=== PATIENT | male | born 1990 | race Caucasian/White ===

== ENCOUNTER 2022-04-26 23:31 | Emergency (ER) | payer BC ==
[~2022-04-26] VITALS: Ht 188 cm; Wt 140.6 kg
[2022-04-27 00:28] VITALS: BP 135/99
[2022-04-27 01:12] LABS: BASOPHILS # (AUTO) 0.1 K/uL (0.00-0.22); BASOPHILS % (AUTO) 0.6 % (0.0-2.0); EOSINOPHILS % (AUTO) 0.1 % (0.0-4.0); HEMATOCRIT 48.7 % (36-52); HEMOGLOBIN 16.4 g/dL (12.0-18.0); LYMPHOCYTES # (AUTO) 1.1 K/uL (2.0-11.5); LYMPHOCYTES % (AUTO) 9.9 % (20.5-51.1); MEAN CORPUSCULAR HEMOGLOBIN 31 pg (27-31); MEAN CORPUSCULAR HGB CONC 34 g/dL (33-37); MEAN CORPUSCULAR VOLUME 93.3 fL (80-94); MONOCYTES # (AUTO) 1.4 K/uL (0.8-1.0); MONOCYTES % (AUTO) 12.6 % (1.7-9.3); NEUTROPHILS # (AUTO) 8.5 K/uL (1.8-7.7); NEUTROPHILS % (AUTO) 76.8 % (42.2-75.2); PLATELET COUNT (AUTO) 280 K/uL (140-450); RED BLOOD CELL COUNT(AUTO) 5.22 MIL/uL (4.20-6.10)
[2022-04-27 01:29] LABS: ALBUMIN 4.1 g/dL (3.4-5.0); CARBON DIOXIDE 27.5 mmol/L (21-32); CREATININE 1.1 mg/dL (0.6-1.3); POTASSIUM 4.5 mmol/L (3.5-5.1); TOTAL BILIRUBIN 0.5 mg/dL (0.0-1.0)
[2022-04-27 01:46] LABS: APPEARANCE,URINE CLEAR (CLEAR); BILIRUBIN,URINE 1+ (NEGATIVE); BLOOD, URINE NEGATIVE (NEGATIVE); COLOR,URINE DARK YELLOW (YELLOW); LEUKOCYTE ESTERASE ,URINE NEGATIVE (NEGATIVE); NITRITE, URINE NEGATIVE (NEGATIVE); UGLUCOSE NEGATIVE (NEGATIVE)
[2022-04-27] MEDS ORDERED: MORPHINE SULFATE 4 MG/ML SYR IVP ONE ×2 (02:10→06:10)
[2022-04-27] MEDS ORDERED: LACTATED RINGERS 1,000 ML IV ONE ×2 (02:10→06:10)
--- NOTE | 2022-04-27 02:19 | NUR ---
pt taken to bed 9 with steady gait.
--- NOTE | 2022-04-27 03:25 | NUR ---
31 yo/m presents to ED w c/o mid-epigastric pain 8/10 sharp constant non-rad xapprox 13 hours, + nausea. Pt denies any fevers, chills, v/d, chest pain or sob. pt laying in bed locked in lowest position, breathing even an dunlabored, will continue to monitor. pmh: denies allergies: denies
--- NOTE | 2022-04-27 04:02 | NUR ---
COVID SWAB SENT TO LAB
--- NOTE | 2022-04-27 04:05 | NUR ---
pt reports abdominal pain improvement.
--- NOTE | 2022-04-27 04:50 | NUR ---
spoke olga lidia gonzales from [facility] to provide clinicals.
--- NOTE | 2022-04-27 06:08 | NUR ---
PT REPORTS PAIN HAS RETURNED 4-5/, PT TACHY 115 ERMD AWARE OF PT STATUS.
--- NOTE | 2022-04-27 06:41 | NUR ---
Patient to be transferred to [facility]. Is being transferred due to insurance request. Receiving facility has accepting physician and available space. ER physician has signed transfer form. Patient or responsible constitution party has agreed to transfer and signed form. Patient belongings inventoried and will be sent with patient. Copy of nursing notes, lab reports, EKG, Physicians Orders and X-rays to be sent with patient. Report called to margarito GREENE at receiving facility. [facility] ambulance service has been called for transfer. ETA is [id number].
--- NOTE | 2022-04-27 07:14 | NUR ---
Pt report given to JC Souza. Transfer of care at this time.
--- NOTE | 2022-04-27 07:26 | NUR ---
Patient appears to be resting comfortably in bed. Vital Signs within normal limits. Respirations even and unlabored.
--- NOTE | 2022-04-27 08:42 | NUR ---
Patient to be transferred to [facility]. [facility] here for transport. pt belongings in bag and placed given to [facility]. pt in gown, a&ox4, ambulates with even steady gait.
[2022-04-27 08:43] VITALS: BP 152/101
== END 2022-04-27 08:40 | disposition short-term general hospital (02) ==
LOC: MED 23:31
DX: K85.90 Acute pancreatitis without necrosis or infection, unspecified (principal); Z20.822 Contact with and (suspected) exposure to COVID-19; R11.0 Nausea
CPT/HCPCS: 36415; 80053; 81003; 82150; 83690; 85025; 87426; 96361; 96374; 96375; 99284; J2270